=== PATIENT | female | born 1980 | race American Indian/Alaskan Native ===

== ENCOUNTER 2022-01-18 11:25 | Outpatient (CLI) | payer BC, SELFPAY ==
[2022-01-18 17:18] LABS: Chloride* 102 mmol/L (96-114); Potassium* 4.3 mmol/L (3.6-5.1); Sodium* 135 mmol/L (135-149)
[2022-01-18 17:20] LABS: Creatinine* 0.6 mg/dL (0.5-1.5); Estimated Glomerular Filt Rate 115 ml/min
[2022-01-18 17:21] LABS: Blood Urea Nitrogen* 16 mg/dL (5-24); Calcium* 9.1 mg/dL (8.4-10.6); Carbon Dioxide* 23 mmol/L (20-32); Glucose* 89 mg/dL (60-115)
== END 2022-01-18 11:26 | disposition home or self-care (01) ==
LOC: LONREF 11:27
PROVIDERS: PCP Family Medicine; Visit Provider Family Medicine
DX: I10 Essential (primary) hypertension (principal); Z13.1 Encounter for screening for diabetes mellitus; R60.9 Edema, unspecified; F41.9 Anxiety disorder, unspecified; I80.9 Phlebitis and thrombophlebitis of unspecified site; J45.990 Exercise induced bronchospasm
CPT/HCPCS: 80048

== ENCOUNTER 2023-05-09 10:53 | Outpatient (CLI) | payer BC, SELFPAY | END 2023-05-09 10:54 | disposition home or self-care (01) | PROVIDERS: PCP Family Medicine; Visit Provider Family Medicine | DX: I10 Essential (primary) hypertension (principal); E66.01 Morbid (severe) obesity due to excess calories; Z13.6 Encounter for screening for cardiovascular disorders | CPT/HCPCS: 80048; 80061 ==

== ENCOUNTER 2024-05-20 10:46 | Outpatient (CLI) | payer BC, SELFPAY | END 2024-05-20 10:47 | disposition home or self-care (01) | LOC: LKVREF 10:47 | PROVIDERS: PCP Family Medicine; Visit Provider Family Medicine | DX: I10 Essential (primary) hypertension (principal); Z79.899 Other long term (current) drug therapy | CPT/HCPCS: 80048 ==

== ENCOUNTER 2024-08-13 09:12 | Outpatient (CLI) | payer BC, SELFPAY ==
--- NOTE | 2024-08-13 09:15 | CRLHL7_ITS ---
For Patients: As a result of the Century Cures Act, medical imaging exams and procedure reports are released immediately into your electronic medical record. You may view this report before your referring provider. If you have questions, please contact your health care provider. INDICATION: Bilateral screening mammogram, asymptomatic 43 Y/O female COMPARISON: 06/08/2020 TECHNIQUE: CC and MLO views were obtained. These mammographic images have been obtained using full-field digital technique. These mammographic images were interpreted with the benefit of computer aided detection and tomosynthesis. BREAST COMPOSITION: There are scattered areas of fibroglandular density. FINDINGS: No suspicious findings. ASSESSMENT: BI-RADS 1 Negative RECOMMENDATION: Annual screening mammogram. A lay language report of this examination will be provided to the patient. Dictated by: Elpidio Jiménez MD @ 08/14/2024 09:41:04 (Electronically Signed)
== END 2024-08-13 09:13 | disposition home or self-care (01) ==
LOC: MAMMO 09:13
PROVIDERS: PCP Family Medicine; Visit Provider Family Medicine
DX: Z12.31 Encounter for screening mammogram for malignant neoplasm of breast (principal)
CPT/HCPCS: 77063; 77067